=== PATIENT | female | born 1990 | race African-American/Black ===

== ENCOUNTER 2023-11-20 09:31 | Day surgery (SDC) | payer OTHER ==
[~2023-11-20] VITALS: Ht 170.2 cm; Wt 104.3 kg
[2023-11-20] MEDS ORDERED: fentaNYL citrate 0.05 MG/ML VIAL ONE (11:25)
[2023-11-20] MEDS ORDERED: MIDAZOLAM 2 MG/2 ML VIAL ONE (11:25)
[2023-11-20] MEDS: MIDAZOLAM 2 MG/2 ML VIAL IVP ONE (11:38)
[2023-11-20] MEDS: fentaNYL citrate 0.05 MG/ML VIAL IVP ONE (11:53)
[2023-11-20] MEDS ORDERED: MIDAZOLAM 2 MG/2 ML VIAL IVP ONE (12:05)
== END 2023-11-20 13:06 | disposition home or self-care (01) ==
LOC: MDS 09:31 → MMU 09:38 → MDS 13:06
PROVIDERS: ATTEND Internal Medicine Gastroenterology
DX: R10.13 Epigastric pain (principal); R11.10 Vomiting, unspecified; K21.9 Gastro-esophageal reflux disease without esophagitis; I10 Essential (primary) hypertension; F41.9 Anxiety disorder, unspecified; J45.909 Unspecified asthma, uncomplicated; Z88.6 Allergy status to analgesic agent; Z91.040 Latex allergy status; Z79.899 Other long term (current) drug therapy; Z98.890 Other specified postprocedural states
CPT/HCPCS: 36415; 43239; 86677; J2250; J3010